=== PATIENT | male | born 1940 | race African-American/Black ===

== ENCOUNTER 2016-09-12 11:41 | Emergency (ER) | payer MEDICARE, OTHER ==
[~2016-09-12] VITALS: Ht 188 cm; Wt 81.6 kg
[2016-09-12 13:15] VITALS: BP 159/92
--- NOTE | 2016-09-12 14:01 | PHYS DOC ---
Past Medical History Past Medical History: Hypertension Past Surgical History: No Surgical History Alcohol Use: None Drug Use: None Adult General Chief Complaint Chief Complaint: BACK PAIN - NO INJURY HPI HPI Patient is a 76 year old male with history of hypertension who presents today with mild bilateral low back pain radiating to bilateral lower extremities for the last 3 weeks. Patient denies any known injury. Denies any loss of bowel bladder function. He states he has been following up with his own PCP and was put on hydrocodone which he believes is not helping. Review of Systems Review of Systems Constitutional: Denies fever or chills [] Eyes: Denies change in visual acuity, redness, or eye pain [] HENT: Denies nasal congestion or sore throat [] Respiratory: Denies cough or shortness of breath [] Cardiovascular: No additional information not addressed in HPI [] GI: Denies abdominal pain, nausea, vomiting, bloody stools or diarrhea [] : Denies dysuria or hematuria [] Musculoskeletal: Bilateral low back pain Integument: Denies rash or skin lesions [] Neurologic: Denies headache, focal weakness or sensory changes [] Endocrine: Denies polyuria or polydipsia [] Allergies Allergies Allergies Coded Allergies Type Severity Reaction Last Updated Verified No Known Drug Allergies 09/12/16 No Physical Exam Physical Exam Constitutional: Well developed, well nourished, no acute distress, non-toxic appearance. [] HENT: Normocephalic, atraumatic, bilateral external ears normal, oropharynx moist, no oral exudates, nose normal. [] Eyes: PERRLA, EOMI, conjunctiva normal, no discharge. [] Neck: Normal range of motion, no tenderness, supple, no stridor. [] Cardiovascular:Heart rate regular rhythm, no murmur [] Lungs & Thorax: Bilateral breath sounds clear to auscultation [] Abdomen: Bowel sounds normal, soft, no tenderness, no masses, no pulsatile masses. [] Skin: Warm, dry, no erythema, no rash. [] Back: Diffuse tenderness paraspinal muscles of bilateral low lumbar region, no midline tenderness, no CVA tenderness. [] Extremities: No tenderness, no cyanosis, no clubbing, ROM intact, no edema. [] Neurologic: Alert and oriented X 3, normal motor function, normal sensory function, no focal deficits noted. [] Psychologic: Affect normal, judgement normal, mood normal. [] Current Patient Data Vital Signs Vital Signs Date Time Temp Pulse Resp B/P Pulse Ox O2 Delivery O2 Flow Rate FiO2 09/12/16 13:15 97.7 110 18 97 Room Air 97.7 EKG EKG [] Radiology/Procedures Radiology/Procedures [] Course & Med Decision Making Course & Med Decision Making Pertinent Labs and Imaging studies reviewed. (See chart for details) Patient is in the ED with back pain for 3 weeks. He has been seen by the PCP for this, he states PCP thought it was a pulled muscle. Patient is requesting x- rays. Lumbar x-rays interpreted by radiologist are negative for any acute findings but noted for DJD. Patient has hydrocodone at home. Discharged with Flexeril. Follow-up with his own PCP next week. Provided return precautions and discharged in stable condition. Dragon Disclaimer Dragon Disclaimer This electronic medical record was generated, in whole or in part, using a voice recognition dictation system. Departure Departure Impression: Primary Impression: Degenerative joint disease (DJD) of lumbar spine Additional Impression: Back pain Disposition: HOME, SELF-CARE Condition: STABLE Referrals: BUBBA HENSON MD (PCP) Follow-up with your doctor next week Patient Instructions: Arthritis, Degenerative-Brief, Back Pain, Adult Additional Instructions: You were seen for back pain for 3 weeks, your x-rays of the lumbar spine shows you have arthritis. Follow-up with your doctor in the next 7 days, come back to the emergency room if you have any concerning symptoms especially loss of bowel bladder function. You can apply heat or ice to your back. Continue taking hydrocodone as ordered by your doctor. Scripts Cyclobenzaprine Hcl 10 Mg Tablet1 Tab PO TID #30 TAB Prov:KATLYN BERTRAND APRN 09/12/16 Problem Qualifiers Primary Impression: Degenerative joint disease (DJD) of lumbar spine Spinal osteoarthritis complication: unspecified spinal osteoarthritis Qualified Code: M47.816 - Spondylosis without myelopathy or radiculopathy, lumbar region Additional Impression: Back pain Back pain location: low back pain Chronicity: acute Back pain laterality: bilateral Sciatica presence: without sciatica Qualified Code: M54.5 - Low back pain KATLYN BERTRAND APRN Sep 12, 2016 14:01
--- NOTE | 2016-09-12 14:20 | RAD ---
Lumbar spine, 3 views, 09/12/2016: History: Low back pain The lumbar vertebral heights are well-maintained. There is a mild spondylolisthesis at L4-5 which appears to be due to moderate facet joint arthropathy. There is disc space narrowing and moderate marginal spurring at L5-S1. There are mild spurs at other levels in the lumbar spine. Aortoiliac calcific plaquing is present. IMPRESSION: 1. Moderate degenerative disc disease at L5-S1. 2. Moderate facet joint arthropathy in the lower lumbar spine with a mild associated spondylolisthesis at L4-5.
[2016-09-12] MEDS ORDERED: CYCL10TA2 PO (14:38)
== END 2016-09-12 14:40 | disposition home or self-care (01) ==
LOC: ER 11:41
DX: M47.816 Spondylosis without myelopathy or radiculopathy, lumbar region (principal); I10 Essential (primary) hypertension
CPT/HCPCS: 72100; 99284